=== PATIENT | female | born 1960 | race Caucasian/White ===

== ENCOUNTER 2017-02-20 00:50 | Emergency (ER) | payer BC ==
[~2017-02-20] VITALS: Ht 172.7 cm; Wt 113.1 kg
[2017-02-20] MEDS ORDERED: ORPHENADRINE 60 MG/2 ML (NORFLEX) AMP IM ONE (01:25)
[2017-02-20] MEDS ORDERED: ONDANSETRON 4 MG (ZOFRAN) ORAL DISSOLVE TAB PO ONE (01:25)
[2017-02-20] MEDS ORDERED: HYDROmorphone 1 MG/ML (DILAUDID) SYRINGE IM ONE (01:25)
[2017-02-20 03:12] VITALS: BP 135/62
== END 2017-02-20 02:44 | disposition home or self-care (01) ==
LOC: ED 00:53
DX: R07.81 Pleurodynia (principal)
CPT/HCPCS: 71101; 99282; J1170; J2360; 96372; 99283